=== PATIENT | male | born 1975 | race Caucasian/White ===

== ENCOUNTER 2016-08-19 23:05 | Emergency (ER) | payer BC, OTHER ==
[~2016-08-19] VITALS: Ht 182.9 cm; Wt 90.7 kg
[2016-08-19 23:35] VITALS: BP 166/100
[2016-08-19] MEDS ORDERED: HYDR-971 PO (23:55)
[2016-08-19] MEDS ORDERED: HYDROcodone/APAP 5/325MG 1 TAB TABLET PO ONE (23:55)
[2016-08-19] MEDS ORDERED: AMOX500C PO (23:55)
[2016-08-19] MEDS ORDERED: AMOXICILLIN 250 MG CAPSULE. PO ONE (23:55)
--- NOTE | 2016-08-19 23:55 | PHYS DOC ---
Past Medical History Past Medical History: Arthritis Past Surgical History: Cholecystectomy, Other Additional Past Surgical Histo: ACL Alcohol Use: Occasionally Drug Use: None Adult General Chief Complaint Chief Complaint: DENTAL PROBLEM HPI HPI Patient is a 41 year old male presents emergency Department with progressive pain and swelling to his left lower jaw for the past 3 days. Patient states he had a crown fall off earlier this week. He and his been having progressive pain and swelling in that area. Patient denies any antibiotic use within the past 30 days. He states that he did contact a dentist down at [place], which is near his work for an appointment. He is pending to be seen within the next week. He states that he is on a waiting list to get bumped up if it is available. He denies fevers, chills, myalgias or arthralgias/flulike symptoms. Review of Systems Review of Systems Constitutional: Denies fever or chills [] Eyes: Denies change in visual acuity, redness, or eye pain [] HENT: Denies nasal congestion or sore throat [] Respiratory: Denies cough or shortness of breath [] Cardiovascular: No additional information not addressed in HPI [] GI: Denies abdominal pain, nausea, vomiting, bloody stools or diarrhea [] : Denies dysuria or hematuria [] Musculoskeletal: Denies back pain or joint pain [] Integument: Denies rash or skin lesions [] Neurologic: Denies headache, focal weakness or sensory changes [] Endocrine: Denies polyuria or polydipsia [] Current Medications Current Medications Current Medications Medications (Trade) Dose Ordered Sig/[facility] Start Time Stop Time Status Last Admin Dose Admin Acetaminophen/ Hydrocodone Bitart (Lortab 5/325) 1 tab 1X ONCE 08/19/16 23:45 08/19/16 23:46 UNV Amoxicillin (Amoxil) 500 mg 1X ONCE 08/19/16 23:45 08/19/16 23:46 UNV Allergies Allergies Allergies Coded Allergies Type Severity Reaction Last Updated Verified naproxen Allergy Intermediate 09/21/15 Yes Physical Exam Physical Exam Constitutional: Well developed, well nourished, mild distress, non-toxic appearance. HENT: Normocephalic, atraumatic, bilateral external ears normal, oropharynx moist, no oral exudates, nose normal. There is mild swelling and tenderness to palpation along the body of the left mandible. There is palpable indurated tissue without fluctuant pocket. There is no trismus. There is widespread dental caries and very stages of decay. The first left mandibular molar is without the crown. It is decayed into the pulp. There is no active purulent drainage. There is surrounding gingival inflammation without a fluctuant pocket. Eyes: PERRLA, EOMI, conjunctiva normal, no discharge. [] Neck: Normal range of motion, no tenderness, supple, no stridor. [] Cardiovascular:Heart rate regular rhythm, no murmur [] Lungs & Thorax: Bilateral breath sounds clear to auscultation [] Abdomen: Bowel sounds normal, soft, no tenderness, no masses, no pulsatile masses. [] Skin: Warm, dry, no erythema, no rash. [] Back: No tenderness, no CVA tenderness. [] Extremities: No tenderness, no cyanosis, no clubbing, ROM intact, no edema. [] Neurologic: Alert and oriented X 3, normal motor function, normal sensory function, no focal deficits noted. [] Psychologic: Affect normal, judgement normal, mood normal. [] Current Patient Data Vital Signs Vital Signs Date Time Temp Pulse Resp B/P (MAP) Pulse Ox O2 Delivery O2 Flow Rate FiO2 08/19/16 23:35 98.2 92 16 97 Room Air 98.2 EKG EKG [] Radiology/Procedures Radiology/Procedures [] Course & Med Decision Making Course & Med Decision Making Pertinent Labs and Imaging studies reviewed. (See chart for details) [] Dragon Disclaimer Dragon Disclaimer This electronic medical record was generated, in whole or in part, using a voice recognition dictation system. Departure Departure Impression: Primary Impression: Periapical abscess Disposition: 01 HOME, SELF-CARE Condition: GOOD Referrals: NO PCP (PCP) Patient Instructions: Dental Abscess Additional Instructions: 1. Take the medication as prescribed. 2. Rinse your mouth with warm salt water each time after you eat. 3. You discharge instructions for self-care and reasons to return the emergency department. 4. Be sure to follow-up with your dentist as scheduled. Scripts Hydrocodone/Apap 5-325 (NORCO 5-325 TABLET) 1 Each Tablet 1 TAB PO PRN Q6HRS Y for PAIN, #15 TAB 0 Refills Prov: PENNY VENTURA 08/19/16 Amoxicillin (AMOXICILLIN) 500 Mg Capsule 500 MG PO TID, #30 CAP 0 Refills Prov: PENNY VENTURA 08/19/16 PENNY VENTURA August 19, 2016 23:55
== END 2016-08-20 | disposition home or self-care (01) ==
LOC: ER 23:26
DX: K04.7 Periapical abscess without sinus (principal); M19.90 Unspecified osteoarthritis, unspecified site; Z88.6 Allergy status to analgesic agent
CPT/HCPCS: 99283

== ENCOUNTER 2017-10-28 10:57 | Emergency (ER) | payer BC | END 2017-10-28 11:43 | disposition home or self-care (01) | LOC: ER 11:43 | DX: M27.69 Other endosseous dental implant failure (principal); K02.9 Dental caries, unspecified; M19.90 Unspecified osteoarthritis, unspecified site; Z90.49 Acquired absence of other specified parts of digestive tract; Z88.8 Allergy status to other drugs, medicaments and biological substances | CPT/HCPCS: 99283 ==